=== PATIENT | male | born 1945 | race Caucasian/White ===

== ENCOUNTER 2017-04-04 11:26 | Day surgery (SDC) | payer BC, OTHER ==
[2017-04-02 08:25] VITALS: BMI 37.0
--- NOTE | 2017-04-02 09:15 | PAT Medication Instructions ---
Service Date Apr 02, 2017. Current Home Medication List Albuterol Hfa (Ventolin Hfa), 2 PUFFS INH Q6H PRN for PRN Aspirin (Aspirin Ec), 81 MG PO QAM Fluticasone Prop/Salmeterol (Advair Diskus 250/50 60 Dose), 1 PUFF INH BID Fluticasone Propionate (Nasal) (Flonase Allergy Relief), 2 SPRAYS DUSTIN PRN Cwpreiwcnyn-Cfktxpvuwpq-Ljy C- (Glucosamine Chondroitin), 2 TAB PO QAM Insulin Detemir (Levemir), 48 UNITS SC BID Lisinopril (Zestril), 2.5 MG PO QAM Metoprolol Succ (Toprol Xl) (Toprol-Xl), 25 MG PO QAM Nitroglycerin (Nitrostat), 0.4 MG UT PRN Pantoprazole (Protonix), 40 MG PO QAM Rosuvastatin Calcium (Crestor), 20 MG PO QAM Venlafaxine Hcl (Effexor Extended Rel), 150 MG PO QAM [Alpha Lipoic Acid], 2 TAB PO QAM [Apple Cider Vinegar], 2 TAB PO QAM [Chromium Picilinate], 2 TAB PO QAM [Msm], 2 TAB PO QAM [Nicotine], 1 PATCH TOP UD PRN for RN [Turmeric], 1 TAB PO QAM [Zinc], 2 TAB PO QAM Medication Instructions For Your Scheduled Surgery Nitroglycerin (Nitrostat), 0.4 MG UT PRN (if needed) - Hold the following medications 2 weeks prior to surgery: Alpha Lipoic Acid, 2 TAB PO QAM Apple Cider Vinegar, 2 TAB PO QAM Chromium Picilinate, 2 TAB PO QAM Msm 2 TAB PO QAM Turmeric, 1 TAB PO QAM Zinc, 2 TAB PO QAM Pnirgwmiajj-Wqespyzioqd-Esm C- (Glucosamine Chondroitin), 2 TAB PO QAM - Hold the following medications the morning of surgery: Nicotine, 1 PATCH TOP UD PRN for RN Losartan - Take the following medications the morning of surgery with a sip of water: Venlafaxine Hcl (Effexor Extended Rel), 150 MG PO QAM Pantoprazole (Protonix), 40 MG PO QAM Rosuvastatin Calcium (Crestor), 20 MG PO QAM Metoprolol Succ (Toprol Xl) (Toprol-Xl), 25 MG PO QAM Fluticasone Prop/Salmeterol (Advair Diskus 250/50 60 Dose), 1 PUFF INH BID Fluticasone Propionate (Nasal) (Flonase Allergy Relief), 2 SPRAYS DUSTIN PRN Albuterol Hfa (Ventolin Hfa), 2 PUFFS INH Q6H PRN for PRN (bring with you to hospital on day of surgery) Aspirin (Aspirin Ec), 81 MG PO QAM (per surgeon instructions) - Take the following medications as scheduled the night before surgery: Fluticasone Prop/Salmeterol (Advair Diskus 250/50 60 Dose), 1 PUFF INH BID Fluticasone Propionate (Nasal) (Flonase Allergy Relief), 2 SPRAYS DUSTIN PRN Albuterol Hfa (Ventolin Hfa), 2 PUFFS INH Q6H PRN for PRN Insulin Detemir (Levemir), 48 UNITS SC BID - For Insulin Dependent Diabetic patients: Test blood sugar A.M. of surgery. - If blood sugar is greater than 150, take half of your insulin dose ( Levemir 24 units) - If blood sugar is less than 150, do not take any:Levemir If you have any questions please call us at [phone] or [phone] ( [facility]) or [phone]
[2017-04-02 10:35] LABS: BASO % 0.3 %; BASO ABS # 0.03 K/uL (0-0.2); COMPLETE YES; EOS % 2.4 %; HEMATOCRIT 44.2 % (42-52); IG% 0.3 %; LYMPH % 24.4 %; LYMPH ABS # 2.41 K/uL (1.2-3.4); MEAN CORPUSCULAR HEMOGLOBIN 29.7 pg (25-34); MEAN PLATELET VOLUME 11.2 fL (7.4-10.4); MONO % 7.3 %; NEUT % 65.3 %; PLATELET COUNT 187 K/uL (130-400); RED BLOOD COUNT 4.91 M/uL (4.7-6.1); WHITE BLOOD COUNT 9.89 K/uL (4.8-10.8)
[2017-04-02 10:44] LABS: PROTHROMBIN TIME (PATIENT) 10.7 SECONDS (9.0-12.0)
[2017-04-02 11:01] LABS: URINE APPEARANCE CLEAR (CLEAR); URINE BILIRUBIN NEG (NEG); URINE COLOR YELLOW; URINE NITRITE NEG (NEG); URINE PH 5.5 (4.5-7.5); URINE SPECIFIC GRAVITY 1.024 (1.000-1.030); UROBILINOGEN NEG (NEG)
[2017-04-02 11:09] LABS: MANUAL MICROSCOPIC REQUIRED? NO; REVIEW REQ? NO
[2017-04-02 11:33] LABS: BUN/CREATININE RATIO 18.5 (10-20); CALCIUM 9.1 mg/dl (8.5-10.1); CREATININE 0.91 mg/dl (0.60-1.40); POTASSIUM 4.3 mmol/L (3.5-5.1)
--- NOTE | 2017-04-03 21:50 | History and Physical ---
History & Physical Date Apr 03, 2017. Chief Complaint right ankle pain History of Present Illness The patient is a 71 year old male with complaints of right achilles pain. He's had a 2+ year hx of right achilles pain without any previous injury. He was treated with PT and NSAIDs but failed conservative management. He's now being set up for surgical tx. Past Medical/Surgical History PMH: [place] in September of 2008, Asthma with chronic cough, sleep apnea, anxiety, Insulin dependent DM, Acid Reflux, obesity Surgical Hx: Knee surgery, upper endoscopy Allergies Coded Allergies: Lisinopril (Verified Allergy, Unknown, cough, 04/02/17) Ragweed (Unverified Allergy, Unknown, COUGHING,SNEEZING, 04/02/17) Home Medications Scheduled Aspirin (Aspirin Ec), 81 MG PO QAM Fluticasone Prop/Salmeterol (Advair Diskus 250/50 60 Dose), 1 PUFF INH BID Fluticasone Propionate (Nasal) (Flonase Allergy Relief), 2 SPRAYS DUSTIN PRN Vzktbskosdg-Krbkzafgpvw-Dtl C- (Glucosamine Chondroitin), 2 TAB PO QAM Insulin Detemir (Levemir), 48 UNITS SC BID Losartan Potassium (Cozaar), 1 TAB PO DAILY Metoprolol Succ (Toprol Xl) (Toprol-Xl), 25 MG PO QAM Nitroglycerin (Nitrostat), 0.4 MG UT PRN Pantoprazole (Protonix), 40 MG PO QAM Rosuvastatin Calcium (Crestor), 20 MG PO QAM Venlafaxine Hcl (Effexor Extended Rel), 150 MG PO QAM [Alpha Lipoic Acid], 2 TAB PO QAM [Apple Cider Vinegar], 2 TAB PO QAM [Chromium Picolinate], 2 TAB PO QAM [Msm], 2 TAB PO QAM [Turmeric], 1 TAB PO QAM [Zinc], 2 TAB PO QAM Scheduled PRN Albuterol Hfa (Ventolin Hfa), 2 PUFFS INH Q6H PRN for PRN [Nicotine], 1 PATCH TOP UD PRN for RN Physical Examination Skin: warm/dry, no rash Head: normocephalic, atraumatic Neck: supple Respiratory/Chest: lungs clear, normal breath sounds, no respiratory distress Cardiovascular: regular rate, rhythm, no murmur Abdomen / GI: normal bowel sounds, non tender Extremities: + pertinent finding (Right ankle: Swelling at the achilles. Tender to palpation at the achilles midsubstance. Painful passive and active ROM of the right ankle.) Neurologic/Psych: no motor/sensory deficits, alert, oriented x 3 Diagnosis Right achilles tendinosis Plan of Treatment Recommend a right ankle achilles tendon debridement. All potential risks, benefits, complications, alternatives, and rehab have been discussed. The patient wishes to proceed as indicated. He will be scheduled for surgery on 04.04.17.
[~2017-04-04] VITALS: Ht 166.4 cm; Wt 103.5 kg
[~2017-04-04 11:26] MED LIST: ADVIN25/60 INH; ALPHA LIPOIC ACID PO; APPLE CIDER VINEGAR PO; ASPI81TA28 PO; CEFAZOLIN 2000 MG/60 ML D5W IV SCH; CHROPOW21 PO; FLUT0.15 NAE; GLUCTAB7 PO; LACTATED RINGER'S 1000ML 1,000 ML IV SCH; LOSA50TA6 PO; LVMI SC; METO25TA3 PO; MSM PO; NICOTINE TOP; NTRGSL/4 UT; PANT40TA PO; ROPIVACAINE 0.5% 5 MG/ML 30 ML VIAL ONE; ROSU20TA PO; TURMERIC PO; VENL150C56 PO; VNTHFA/IN INH; ZINC PO
[2017-04-04 12:00] VITALS: BP 133/67; PULSE 83; TEMP 36.9; O2SAT 96; Ht 166.4 cm; Wt 103.5 kg
[2017-04-04] MEDS ORDERED: FENTANYL CITRATE INJ 50 MCG/1 ML 2 ML VIAL ONE ×2 (13:18→14:58)
[2017-04-04] MEDS ORDERED: MIDAZOLAM HCL 1 MG/ML 2ML VIAL ONE (13:18)
[2017-04-04] MEDS ORDERED: ROPIVACAINE 0.5% 5 MG/ML 30 ML VIAL ONE (13:53)
[2017-04-04] MEDS ORDERED: ALBUT/IPRATROP 3MG/0.5MG NEB 3 ML VIAL INH ONE (14:00)
[2017-04-04] MEDS ORDERED: HYDROmorphone INJ 2 MG/ML SYR/VIAL IV PRN (14:00)
[2017-04-04] MEDS ORDERED: PHENYLEPHRINE 100MCG/ML 5ML SYR IV PRN (14:00)
[2017-04-04] MEDS ORDERED: EpHEDrine SULFATE INJ 50 MG/ML AMP IV PRN (14:00)
[2017-04-04] MEDS ORDERED: ATROPINE SULFATE 0.1 MG/ML 5ML SYR IV PRN (14:00)
[2017-04-04] MEDS ORDERED: ONDANSETRON INJ 2 MG/ML 2 ML VIAL IV PRN ×2 (14:00→16:30)
[2017-04-04] MEDS ORDERED: MINERAL OIL LIGHT 10 ML BTL ONE (14:13)
[2017-04-04 14:14] VITALS: PULSE 80; O2SAT 95
[2017-04-04] MEDS ORDERED: BACITRACIN 50000 UNIT VIAL ONE (14:14)
--- NOTE | 2017-04-04 14:29 | History & Physical Bridge Note ---
H&P Re-Evaluation Bridge Note: I have examined the patient, reviewed the History & Physical and in the interval since the performance of the History & Physical I have noted the following changes of clinical significance: No changes noted
[2017-04-04] MEDS ORDERED: ONDANSETRON INJ 2 MG/ML 2 ML VIAL ONE (15:25)
[2017-04-04] MEDS ORDERED: LIDOCAINE HCL 2% 2 ML VIAL (20MG/ML) ONE (15:25)
[2017-04-04] MEDS ORDERED: PROPOFOL IV EMULSION 10 MG/ML 20 ML VIAL IV ONE (15:25)
[2017-04-04] MEDS ORDERED: SUCCINYLCHOLINE 100MG/5ML SYR IV ONE (15:25)
[2017-04-04] MEDS ORDERED: ESMOLOL HCL 10 MG/ML 10 ML VIAL ONE (15:26)
--- NOTE | 2017-04-04 16:24 | [facility] Operative Report ---
Operative Report Operative Date Apr 04, 2017. Pre-Operative Diagnosis Right Achilles Tendinosis Post-Operative Diagnosis Right Achilles Tendinosis Procedure(s) Performed Open Achilles debridement : This is a 71-year-old male who spontaneously developed fusiform enlargement of his right Achilles tendon within the mid substance. He attempted conservative management for approximately 12 months including physical therapy, home exercises, anti-inflammatories, rest and shoe wear modification. He failed all measures. He had an MRI which demonstrated significant Achilles tendinopathy. He was scheduled for surgery as indicated. All potential risks, benefits, complications, alternatives, rehabilitation, wound complications, DVT, PE, , potential need for further surgery, were discussed with the patient. The patient decided to proceed with the procedure as indicated. The patient was taken to the operative suite. Patient was placed supine on the operating room table. After review of the consent and identification of the proper operative site. The patient was anesthetized and LMA was placed. A tourniquet was applied to the operative extremity over cast padding. Patient was then rolled prone over bolsters. All bony prominences were properly padded and protected. The affected extremity was then sterilely prepped and draped in the usual fashion. Limb was exsanguinated with an Esmarch bandage and the tourniquet was inflated to 350 mmHg. A 15 blade scalpel was used to make an incision medial to the Achilles tendon. This incision was deepened to the subcutaneous tissue. Meticulous hemostasis was achieved with cautery. The peritenon was then incised in line with skin incision revealing the Achilles tendon. Blade scalpel is used to split the Achilles tendon. The central mucoid degenerative tissue was then sharply excised with 11 blade scalpel. This tissue was passed off as specimen. The incision was scoped C irrigated with sterile normal saline until clear. #2 FiberWire suture was then used to perform a buried locking loop suture within the tendon to close the lateral wall of the Achilles tendon. Next the medial wall had a locking buried loop #2 FiberWire suture to close the medial wall. Next final irrigation was performed with sterile normal saline until clear. 3-0 Vicryl suture was used to close the peritenon meticulously. Buried 3-0 Vicryl suture was used to close the dermis. 4-0 nylon suture was used to close skin. A sterile compressive dressing was applied over wrapped with a bulky Alexei Marcial plaster splint with the foot held in gravity equinus position. The tourniquet was released. The patient was awakened and taken to recovery in stable condition. Surgeon Dr. Alvaro Tariq Quantometer Operator Surgeon(s) Rishi Grover PA-C Estimated Blood Loss 5 ml Findings See dictation above Specimens a. right Achilles tendon Drains none Anesthesia Gen. endotracheal tube with popliteal block Complication(s) None Disposition Recovery Room / PACU Indications Severe Achilles tendinopathy Description of Procedure See procedure performed I attest to the content of the Intraoperative Record and any orders documented therein. Any exceptions are noted below.
[2017-04-04] MEDS ORDERED: OXYC-57 PO (16:27)
[2017-04-04] MEDS ORDERED: OXYCODONE HCL IR 5 MG TAB (IMMEDIATE RELEASE) PO PRN ×2 (16:30)
[2017-04-04] MEDS ORDERED: MoRPHine SULFATE 2 MG/ML CARP IV PRN (16:30)
--- NOTE | 2017-04-04 16:37 | Discharge Instructions ---
Discharge Instructions Date of Service Apr 04, 2017. Visit Reason for Visit: Right Ankle Achilles Tendinitis Discharge Discharge Diagnosis / Problem: Right Achilles Tendonitis Discharge Goals Goal(s): Decrease discomfort, Improve function Activity Recommendations Activity Limitations: per Instructions/Follow-up section Weightbearing Status: Right non-weightbearing Anesthesia . Post Anesthesia Instructions: If you have had General Anesthesia or IV Sedation: * Do not drive today. * Resume driving when surgeon permits. * Do not make important decisions or sign legal documents today. * Call surgeon for: 1. Temperature elevations greater than 101 degrees F. 2. Uncontrollable pain. 3. Excessive bleeding. 4. Persistent nausea and vomiting. 5. Medication intolerance (nausea, vomiting or rash). * For nausea and vomiting use only clear liquids such as: tea, soda, bouillon until nausea subsides, then gradually increase diet as tolerated. * If you have any concerns or questions, call your surgeon's office. If physician is unavailable and it is an emergency, call 911 or go to the nearest emergency room. . Instructions / Follow-Up Instructions / Follow-Up Keep dressing clean and dry. Keep your right leg elevated on 1 or 2 pillows when at rest. You can keep an ice bag on the back of your ankle off and on in the next 72 hours. You may shower if you keep a waterproof covering over the splint Do not bear any weight on the right leg Use crutches or walker for ambulation Call [facility] if you are having pain not relieved by your pain meds, fever of 101.5 or greater, Increased drainage from the incision [phone] Tariq in 10-14 days. Call for appointment. [phone] Diet Recommendations Recommended Home Diet: resume previous diet Procedures Procedures Performed: Right Ankle Achilles Debridement Pending Studies Studies pending at discharge: no Medical Emergencies . Who to Call and When: Medical Emergencies: If at any time you feel your situation is an emergency, please call 911 immediately. . Non-Emergent Contact Non-Emergency issues call your: Surgeon Call Non-Emergent contact if: temperature is above 101.5, your pain is not controlled, your pain is worsening, wound has increased drainage, wound has increased redness . . "Provider Documentation" section prepared by Rishi Grover. . [place] Drug Monitoring Program Search Results: patient reviewed within database, no issues identified
--- NOTE | 2017-04-04 17:09 | Anesthesiology Progress Note ---
Anesthesia Post Op Note Date & Time Apr 04, 2017 at 17:09 Vital Signs Pain Intensity: 0 Vital Signs Past 12 Hours Date Time Temp Pulse Resp B/P (MAP) Pulse Ox O2 Delivery O2 Flow Rate FiO2 04/04/17 17:05 80 16 163/88 100 Nasal Cannula 3 04/04/17 16:55 36.3 79 16 171/81 100 Nasal Cannula 3 04/04/17 16:45 82 16 152/77 99 Nasal Cannula 3 04/04/17 16:35 88 20 158/82 99 Oxymask 10 04/04/17 16:25 36.1 88 20 168/85 99 Oxymask 10 04/04/17 14:14 80 16 95 Room Air 04/04/17 12:00 36.9 83 20 133/67 (89) 96 Room Air Notes Mental Status: alert / awake / arousable, participated in evaluation Pt Amnestic to Procedure: Yes Nausea / Vomiting: adequately controlled Pain: adequately controlled Airway Patency, RR, SpO2: stable & adequate BP & HR: stable & adequate Hydration State: stable & adequate Anesthetic Complications: no major complications apparent
[2017-04-04 17:35] VITALS: BP 158/75; PULSE 76; TEMP 36.9; O2SAT 95
[2017-04-04 17:40] VITALS: BP 160/75; PULSE 79; O2SAT 94
[2017-04-04 18:00] VITALS: BP 149/71; PULSE 79; TEMP 36.9; O2SAT 94
[2017-04-04] MEDS ORDERED: NURSING VERBAL MED ORDER ONE (18:45)
== END 2017-04-04 18:35 | disposition home or self-care (01) ==
LOC: C.ACU 11:26
PROVIDERS: ATTEND Orthopaedic Surgery Sports Medicine
DX: M76.61 Achilles tendinitis, right leg (principal); E11.9 Type 2 diabetes mellitus without complications; Z79.4 Long term (current) use of insulin; K21.9 Gastro-esophageal reflux disease without esophagitis; G47.30 Sleep apnea, unspecified; J45.909 Unspecified asthma, uncomplicated; E66.9 Obesity, unspecified; F41.9 Anxiety disorder, unspecified; Z79.82 Long term (current) use of aspirin; Z79.899 Other long term (current) drug therapy